=== PATIENT | female | born 1955 | race Caucasian/White ===

== ENCOUNTER 2019-07-19 10:38 | Emergency (ER) | payer OTHER ==
[~2019-07-19] VITALS: Ht 162.6 cm; Wt 59.0 kg
== END 2019-07-19 14:08 | disposition home or self-care (01) ==
LOC: ER 10:38
DX: B33.8 Other specified viral diseases (principal); Z03.818 Encounter for observation for suspected exposure to other biological agents ruled out; B34.8 Other viral infections of unspecified site; R53.1 Weakness; R53.81 Other malaise